=== PATIENT | male | born 1960 | race Caucasian/White ===

== ENCOUNTER 2018-01-10 07:04 | Inpatient (IN) | payer OTHER ==
--- NOTE | 2018-01-10 09:13 | C.PDOC ---
History Of Present Illness 57-year-old male, presents to the emergency department requesting detox from alcohol and cocaine. His last use was last night at 11pm. Patient states he has been increasingly depressed and has suicidal thoughts. Time Seen by Provider: 01/10/18 07:29 Chief Complaint (Nursing): Substance Abuse History Per: Patient History/Exam Limitations: no limitations Modifying Factor(s): Alcohol Recent travel outside of the [place]: No Past Medical History Reviewed: Historical Data, Nursing Documentation, Vital Signs Vital Signs: Last Vital Signs Temp 98.9 F 01/10/18 07:17 Pulse 80 01/10/18 07:17 Resp 20 01/10/18 07:17 BP 100/60 01/10/18 07:17 Pulse Ox 97 01/10/18 07:17 - Medical History PMH: Hypothyroidism Family History: States: No Known Family Hx - Social History Hx Alcohol Use: Yes Hx Substance Use: Yes - Immunization History Hx Tetanus Toxoid Vaccination: Yes Hx Influenza Vaccination: No Hx Pneumococcal Vaccination: No Review Of Systems Constitutional: Negative for: Fever, Weakness Eyes: Negative for: Pain ENT: Negative for: Ear Pain, Ear Discharge Cardiovascular: Negative for: Chest Pain Respiratory: Negative for: Shortness of Breath Gastrointestinal: Negative for: Nausea, Vomiting Genitourinary: Negative for: Dysuria, Frequency Musculoskeletal: Negative for: Neck Pain Skin: Negative for: Rash, Lesions Neurological: Negative for: Weakness, Numbness Physical Exam - Physical Exam Appears: Non-toxic, No Acute Distress Skin: Warm, Dry, No Rash Head: Atraumatic Eye(s): bilateral: Normal Inspection Nose: Normal Oral Mucosa: Moist Lips: Normal Appearing Neck: Normal ROM Cardiovascular: Rhythm Regular, No Murmur Respiratory: Normal Breath Sounds, No Accessory Muscle Use Back: Normal Inspection Extremity: Normal ROM, No Deformity Neurological/Psych: Oriented x3, Normal Speech ED Course And Treatment - Laboratory Results Result Diagrams: 01/10/18 10:23 01/10/18 10:23 O2 Sat by Pulse Oximetry: 97 Pulse Ox Interpretation: Normal (RA) Medical Decision Making Medical Decision Making: PAtient is medically cleared. Psych agrees to admit the patient to psych floor. Disposition - Disposition Disposition: HOSPITALIZED Disposition Time: 12:17 Condition: STABLE Forms: [employer] ([place]) - POA Present On Arrival: None - Clinical Impression Clinical Impression: Alcohol dependence, Depression - Scribe Statement The provider has reviewed the documentation as recorded by the Scribe (Sandra Lehman) All medical record entries made by the Scribe were at my direction and personally dictated by me. I have reviewed the chart and agree that the record accurately reflects my personal performance of the history, physical exam, medical decision making, and the department course for this patient. I have also personally directed, reviewed, and agree with the discharge instructions and disposition.
[2018-01-10 10:36] LABS: BASO # 0.1 K/uL (0.0-0.2); BASO % 0.9 % (0.0-2.0); EOS # 0.1 K/uL (0.0-0.7); EOS % 0.8 % (0.0-4.0); HEMOGLOBIN 13.2 g/dL (12.0-18.0); LYMPH # 1.5 K/uL (1.0-4.3); LYMPH % 20.9 % (20.0-40.0); MEAN CELL VOLUME 91.9 fL (80.0-94.0); MEAN CORPUSCULAR HEMOGLOBIN 31.1 pg (27.0-31.0); MEAN CORPUSCULAR HGB CONC 33.8 g/dL (33.0-37.0); MONO # 0.6 K/uL (0.0-0.8); NEUT # 4.9 K/uL (1.8-7.0); NEUT % 69.4 % (50.0-75.0); NRBC % 0.2 % (0.0-2.0); RBC 4.24 Mil/uL (4.40-5.90); RED CELL DISTRIBUTION WIDTH 14.1 % (11.5-14.5); WHITE BLOOD COUNT 7.1 K/uL (4.8-10.8)
[2018-01-10 10:43] LABS: SQUAMOUS EPITHIAL < 1 /hpf (0-5); URINE BILIRUBIN NEGATIVE (NEGATIVE); URINE BLOOD NEGATIVE (NEGATIVE); URINE CLARITY Clear (Clear); URINE COLOR Yellow (YELLOW); URINE GLUCOSE (UA) NORMAL (Normal); URINE LEUKOCYTE ESTERASE NEG Leu/uL (Negative); URINE PROTEIN NEGATIVE (NEGATIVE)
[2018-01-10 10:59] LABS: ALB/GLOB RATIO 1.5 (1.0-2.1); ALBUMIN 4.1 g/dL (3.5-5.0); ALT/SGPT 49 U/L (21-72); AST/SGOT 62 U/L (17-59); BLOOD UREA NITROGEN 17 mg/dL (9-20); CALCIUM 8.6 mg/dl (8.6-10.4); GFR NON-AFRICAN AMERICAN 57
[2018-01-10 11:24] LABS: BARBITURATES, UR NEGATIVE (NEGATIVE); BENZODIAZEPINES, UR NEGATIVE (NEGATIVE); OPIATES, UR NEGATIVE (NEGATIVE); PHENCYCLIDINE, UR NEGATIVE (NEGATIVE)
[2018-01-10 13:39] VITALS: O2SAT 100
--- NOTE | 2018-01-10 13:55 | PCM.PSYCH ---
Initial Psychiatric Evaluation - Initial Psychiatric Evaluation Type of Admission: Voluntary Legal Status: Capacity Chief Complaint (in patient's own words): "I'm depressed" History of Present Illness and Precipitating Events: Pt is a 57 yr old single male who lives alone and is working as a temp in [employer] who has no current support system. He presented to ED today requesting detox from alcohol and help for his suicidal ideation and depression. He states that he's been increasingly depressed and has had S/I. He states that since his girlfriend of breast cancer 2-3 months ago he's been using cocaine and alcohol. He drinks about 1/2 pint of vodka and 2 quarts of beer per day during this period. He additionally has intermittent use of alcohol for the last 25 years prior to this. He additionally smokes cocaine on and off which began as a young adult. He denied other recreational drug use but has a 29 pack year history of cigarette smoking. He reports a history of alcoholic hallucinations, and delirium tremens in the past but denies ever experiencing withdrawal seizures. He admits to depressed mood, poor appetite, insomnia, hopelessness. He denies anhedonia, current S/I, H/I, auditory/visual hallucinations. Psych: Patient he has been admitted once to a psychiatric hospital when he was 19 for problems at home. He admits he's been to detox here many years ago as well as drug rehab a few times. Prior to these past 2 months he was previously clean for 1yr. Patient has a psychiatric history of anxiety, drepression, insomnia. Medical hx: Hypothyroidism Allergy: Denies Surg: Denies Hosp: Denies Family hx: No psych illness in family, father: alcohol Current Medications: Active Medications Generic Name Dose Route Start Last Admin Trade Name Freq PRN Reason Stop Dose Admin Chlordiazepoxide 25 mg 01/10/18 14:00 Librium PO 01/15/18 13:59 Q6 PAMELA Taper Chlordiazepoxide 25 mg 01/10/18 12:31 Librium PO Q4H PRN Alcohol Withdrawal Clonidine HCl 0.1 mg 01/10/18 12:31 Catapres PO Q4H PRN Symptoms of alcohol withdrawl Escitalopram Oxalate 5 mg 01/10/18 13:15 Lexapro PO DAILY PAMELA Folic Acid 1 mg 01/10/18 12:45 Folic Acid PO DAILY PAMELA Gabapentin 100 mg 01/10/18 14:00 Neurontin PO TID PAMELA Hydroxyzine HCl 25 mg 01/10/18 12:33 Atarax PO Q4H PRN Anxiety Ibuprofen 600 mg 01/10/18 12:33 Motrin Tab PO Q6H PRN Pain, moderate (4-7) Levothyroxine Sodium 25 mcg 01/11/18 06:30 Synthroid PO DAILY@0630 [facility] Multivitamins 1 tab 01/10/18 12:45 Hexavitamin PO DAILY PAMELA Thiamine HCl 100 mg 01/10/18 12:45 Vitamin B1 Tab PO DAILY PAMELA Trazodone HCl 50 mg 01/10/18 12:31 Desyrel PO HS PRN Insomnia Past Psychiatric History - Past Psychiatric History Previous Treatment History: Inpatient Pertinent Medical Hx (Current Medical&Sleep Prob, Allergies): Allergies Allergy/AdvReac Type Severity Reaction Status Date / Time No Known Allergies Allergy Verified 01/10/18 07:17 No Known Home Med 01/10/18 Review of Systems - Neurological Neurological: Tremor - Psychiatric Psychiatric: Abnormal Sleep Pattern, Anhedonia, Anxiety, Depression, Difficulty Concentrating, Mood Swings. absent: Hallucinations, Homicidal Ideation, Paranoia, Suicidal Ideation Mental Status Examination - Personal Presentation Personal Presentation: Looks stated age - Affect Affect: Constricted - Motor Activity Motor Activity: Calm - Reliability in Providing Information Reliability in Providing Information: Good - Speech Speech: Organized - Mood Mood: Depressed, Anxious - Formal Thought Process Formal Thought Process: No Impairment - Cognitive Functions Orientation: Person, Place, Situation, Time Sensorium: Alert Attention/Concentration: Easily distracted Estimate of Intelligence: Average Judgement: Intact, as evidence by: Insight regarding need for hospitalization Memory: Recent intact, as evidence by: Ability to recall events of the day, Remote intact, as evidenced by: Abilit to recall sig. life events - Risk Risk: Withdrawal, Diminished functioning - Strength & Assets Inventory Strength & Assets Inventory: Cooperative - Limitations Limitations: Living alone DSM 5 DX - DSM 5 DSM 5 Diagnosis: Major depression, recurrent, severe, without psychosis Alcohol withdrawal Alcohol use d/o - severe Cocaine use d/o - severe - Recommended/Plan of Treatment Treatment Recommendations and Plan of Treatment: Lexapro for depression librium taper Gabapentin for cocaine and anxiety prn meds Attend groups and activities Supportive psychotherapy and CBT PR for abstinence refer to rehab or IOP 35 min Projected ELOS: 5-6 days Prognosis: good w treatment - Smoking Cessation Smoking Cessation Initiated: Yes
[2018-01-10] MEDS: Multiple Vitamins Tab PO SCH (16:15)
--- NOTE | 2018-01-10 16:36 | PCM.BM ---
<EstebanKumar - Last Filed: 01/10/18 16:34> Treatment Plan Problems - Problems identified on initial assessmt possible si Date Initiated: 01/10/18 Time Initiated: 16:35 Status: Active Treatment assets and liabiliti Patient Assests: cooperative, self-reliant, cognitively intact Patient Liabilities: substance abuse, medical problems - Milieu Protocol Maintain good personal hygiene: daily Encourage regular showers, daily Remind patient to perform daily oral care, daily Assist patient to perform ADL's Conduct patient checks and document Observation sheet: Q15 minutes Maintain personal safety: every shift Educate patient to report safety concerns to staff, every shift Monitor environment for contraband/sharps Medication safety: Monitor for expected outcome, potential side effects: every shift, Assess barriers to learning: every shift, Assess readiness for medication education: every shift <Warren Kramer - Last Filed: 01/11/18 11:22> - Diagnosis (1) Depression Status: Acute Interventions: 01/11/18 11:22 * Assess/adjust medications daily and /or as needed * See patient on an individual basis 7x/week to assess symptoms of depression * Monitor for side effects & effectiveness of medications * (2) Alcohol dependence Status: Acute Interventions: 01/11/18 11:22 * Assess 7x/week regarding severity of withdrawal * Educate regarding risks, benefits, side effects and alternatives of medications * Use Motivational Interviewing for abstinence * Use CBT for relapse prevention * Medication management for withdrawal symptoms * Encourage medication assisted treatment * <Solange Dinh - Last Filed: 01/11/18 12:38> Family Contact Family involvement: Patient does not wish Family/SO involvement Family contact: Patient declines to allow family contact at present - Goals for Treatment Patient goals for treatment: "I want to go to a rehab." Discharge/Continuing Care - Education Needs Education Needs: Patient Medication, Patient Diagnosis/Disease Process, Patient Coping Skills, Patient Placement options, Patient Community resources - Discharge Discharge Criteria: Free of Suicidal thoughts, Normal sleep pattern, Ability to care for self, No longer exhibiting s/s of withdrawal, Reduction of target symptoms Discharge to:: Substance Abuse Rehab - Treatment Team Participation Discussed with Family/SO: No Was Patient/Family/SO present at Treatment Team Meeting: Yes
[2018-01-11] MEDS: Levothyroxine 25 MCG TAB PO SCH (06:17)
[2018-01-11 08:18] LABS: FREE T4 1.11 ng/dL (0.78-2.19)
[2018-01-11] MEDS: Multiple Vitamins Tab PO SCH (10:18)
--- NOTE | 2018-01-11 10:18 | PCM.PYCHPN ---
Psychiatric Progress Note - Psychiatric Progress Note Patient seen today, length of contact: 15 min Patient Chief Complaint: I'm feeling little better Problems Identified/Issues Discussed: Patient seen and evaluated, chart reviewed and discussed with the nurse. Patient still reports reports depressed mood but reports some improvement in the feelings of hopelessness and helplessness. He denies any auditory or visual hallucinations or any paranoia. He remained isolated and withdrawn. He still reports poor sleep and reports withdrawal symptoms including nausea, anxiety, and headaches. He is taking the medications and denies any side effects. Symptoms are improving and she needs more time for stabilization Supportive therapy and psychoeducation were given. Medication Change: Yes Medical Record Reviewed: Yes Mental Status Examination - Cognitive Function Orientation: Person, Place, Situation, Time Memory: Intact Attention: WNL Concentration: Poor Association: WNL Fund of Knowledge: Poor - Mood Mood: Depressed, Anxious - Affect Affect: Constricted - Speech Speech: Soft - Formal Thought Process Formal Thought Process: No Impairment - Suicidal Ideation Suicidal Ideation: No - Homicidal Ideation Homicidal Ideation: No Goal/Treatment Plan - Goal/Treatment Plan Need for Continued Stay: Severe depression anxiety, Severe functional impairment Progress Toward Problem(s) and Goals/Treatment Plan: Major depression, recurrent, severe, without psychosis Alcohol withdrawal Alcohol use d/o - severe Cocaine use d/o - severe Lexapro for depression librium taper Gabapentin for cocaine and anxiety prn meds Attend groups and activities Supportive psychotherapy and CBT DC for abstinence refer to rehab or IOP - Smoking Cessation Smoking Cessation Initiated: Yes
[2018-01-12] MEDS: Levothyroxine 25 MCG TAB PO SCH (06:41)
[2018-01-12] MEDS: Multiple Vitamins Tab PO SCH (10:27)
--- NOTE | 2018-01-12 13:07 | PCM.PYCHPN ---
Psychiatric Progress Note - Psychiatric Progress Note Patient seen today, length of contact: 15 min Patient Chief Complaint: I'm feeling little better Problems Identified/Issues Discussed: Patient seen and evaluated, chart reviewed and discussed with the nurse. Per staff patient remained calm and cooperative. Patient still reports reports depressed mood but reports some improvement in the feelings of hopelessness and helplessness. He denies any auditory or visual hallucinations or any paranoia. He remained isolated and withdrawn. He still reports poor sleep and reports withdrawal symptoms including nausea, anxiety, and headaches. He is taking the medications and denies any side effects. Symptoms are improving and she needs more time for stabilization Supportive therapy and psychoeducation were given. Medication Change: Yes Medical Record Reviewed: Yes Mental Status Examination - Cognitive Function Orientation: Person, Place, Situation, Time Memory: Intact Attention: WNL Concentration: Poor Association: WNL Fund of Knowledge: Poor - Mood Mood: Depressed, Anxious - Affect Affect: Constricted - Speech Speech: Soft - Formal Thought Process Formal Thought Process: No Impairment - Suicidal Ideation Suicidal Ideation: No - Homicidal Ideation Homicidal Ideation: No Goal/Treatment Plan - Goal/Treatment Plan Need for Continued Stay: Severe depression anxiety, Severe functional impairment Progress Toward Problem(s) and Goals/Treatment Plan: Major depression, recurrent, severe, without psychosis Alcohol withdrawal Alcohol use d/o - severe Cocaine use d/o - severe Lexapro for depression librium taper Gabapentin for cocaine and anxiety prn meds Attend groups and activities Supportive psychotherapy and CBT [place] for abstinence refer to rehab or IOP
[2018-01-13] MEDS: Levothyroxine 50 MCG TAB PO SCH (06:18)
[2018-01-13] MEDS: Multiple Vitamins Tab PO SCH (09:44)
[2018-01-13] MEDS ORDERED: Influenza Vaccine 60 MCG/0.5 ML SYR (3 yr & up) IM ONE ×2 (10:00→12:00)
[2018-01-13] MEDS ORDERED: Pneumococcal 23-Valent Vaccine IM ONE (16:11)
--- NOTE | 2018-01-13 17:42 | PCM.PYCHPN ---
Psychiatric Progress Note - Psychiatric Progress Note Patient seen today, length of contact: 16 min Patient Chief Complaint: "I'm depressed" Medication Change: Yes Medical Record Reviewed: Yes Mental Status Examination - Cognitive Function Orientation: Person, Place, Situation, Time Memory: Intact Attention: WNL Concentration: Poor Association: WNL Fund of Knowledge: Poor - Mood Mood: Depressed, Anxious - Affect Affect: Constricted - Speech Speech: Soft - Formal Thought Process Formal Thought Process: No Impairment - Suicidal Ideation Suicidal Ideation: No - Homicidal Ideation Homicidal Ideation: No Goal/Treatment Plan - Goal/Treatment Plan Need for Continued Stay: Severe depression anxiety, Severe functional impairment Progress Toward Problem(s) and Goals/Treatment Plan: Lexapro for depression librium taper Gabapentin for cocaine and anxiety prn meds Attend groups and activities Supportive psychotherapy and CBT OR for abstinence refer to rehab or IOP 35 min
[2018-01-14] MEDS: Levothyroxine 50 MCG TAB PO SCH (06:42)
[2018-01-14] MEDS: Multiple Vitamins Tab PO SCH (09:19)
--- NOTE | 2018-01-14 13:14 | PCM.PYCHPN ---
Psychiatric Progress Note - Psychiatric Progress Note Patient seen today, length of contact: 16 min Patient Chief Complaint: "I'm depressed" Medication Change: Yes Medical Record Reviewed: Yes Mental Status Examination - Cognitive Function Orientation: Person, Place, Situation, Time Memory: Intact Attention: WNL Concentration: Poor Association: WNL Fund of Knowledge: Poor - Mood Mood: Depressed, Anxious - Affect Affect: Constricted - Speech Speech: Soft - Formal Thought Process Formal Thought Process: No Impairment - Suicidal Ideation Suicidal Ideation: No - Homicidal Ideation Homicidal Ideation: No Goal/Treatment Plan - Goal/Treatment Plan Need for Continued Stay: Severe depression anxiety, Severe functional impairment Progress Toward Problem(s) and Goals/Treatment Plan: Lexapro for depression librium taper Gabapentin for cocaine and anxiety prn meds Attend groups and activities Supportive psychotherapy and CBT [place] for abstinence refer to rehab or IOP 35 min
[2018-01-15] MEDS: Levothyroxine 50 MCG TAB PO SCH (06:30)
[2018-01-15] MEDS: Multiple Vitamins Tab PO SCH (09:16)
--- NOTE | 2018-01-15 23:44 | PCM.PYCHPN ---
Psychiatric Progress Note - Psychiatric Progress Note Patient seen today, length of contact: 15 minutes Patient Chief Complaint: I'm feeling better. Problems Identified/Issues Discussed: Patient seen, chart reviewed, case discussed with the staff. Issues related to illness and treatment were discussed with the patient and staff. Reported compliant with treatment with no adverse effects. Tolerating treatment very well. Reported feeling better. Awake, alert and oriented x3. Calm and cooperative with good eye contact. Mood reported as okay. Affect appropriate. Treatment discussed with the patient. Needs more time for stabilization. Aftercare discussed with the patient. Denied any delusions, auditory or visual hallucinations, suicidal ideations or homicidal ideations at the time of evaluation. Medical Problems: Hypothyroidism Diagnostic Results: Reviewed DSM 5 Symptoms Update: Some improvement with treatment Medication Change: No Medical Record Reviewed: Yes Mental Status Examination - Cognitive Function Orientation: Person, Place, Situation, Time Memory: Intact Attention: WNL Concentration: WNL Association: [facility] Fund of Knowledge: [facility] Decription of patient's judgement and insights: Fair - Mood Mood: Depressed (Much less than before) - Affect Affect: Other (Appropriate) - Speech Speech: Soft - Formal Thought Process Formal Thought Process: No Impairment Psychotic Thoughts and Behaviors: None - Suicidal Ideation Suicidal Ideation: No - Homicidal Ideation Homicidal Ideation: No Goal/Treatment Plan - Goal/Treatment Plan Need for Continued Stay: Remain at risks for inpatient hospitalization, Discharge may exacerbated symptoms, Severe functional impairment Progress Toward Problem(s) and Goals/Treatment Plan: Improving with treatment. Patient education. Supportive therapy. CBT for relapse prevention. SC for abstinence. Patient wants to go to [facility] in [place] for follow-up care after discharge from the hospital. Continue treatment as before. Estimated Date of D/C: 01/16/18 - Smoking Cessation Smoking Cessation Initiated: No
[2018-01-16] MEDS: Levothyroxine 50 MCG TAB PO SCH (06:34)
[2018-01-16 08:14] VITALS: BP 105/69; PULSE 78; RESP 20; TEMP 97.3
[2018-01-16] MEDS: Multiple Vitamins Tab PO SCH (09:05)
--- NOTE | 2018-01-16 21:26 | PCM.PYCHDC ---
Mental Status Examination - Mental Status Examination Orientation: Person, Place, Situation, Time Memory: Intact Mood: Neutral Affect: Other (Appropriate) Speech: Appropriate Attention: WNL Concentration: WNL Association: WNL Fund of Knowledge: WNL Formal Thought Process: No Impairment Description of patient's judgement and insight: Fair Psychotic Thoughts and Behaviors: None Suicidal Ideation: No Current Homicidal Ideation?: No Discharge Summary - Discharge Note Reason for Hospitalization: Major depressive disorder Alcohol use disorder Cocaine use disorder Laboratory Data: Reviewed Consultations:: List each consultation separately and include: 1. Reason for request. 2. Findings. 3. Follow-up Summary of Hospital Course include:: 1. Description of specific treatment plan utilized for patients during their course of treatmen. 2. Summarize the time- course for resolution of acute symptoms and/or regressed behaviors. 3. Describe issues identified and worked on during hospitalization. 4. Describe medication utilized. 5. Describe medical problems identified and treated. 6. 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 He presented to ED today requesting detox from alcohol and help for his suicidal ideation and depression. He states that he's been increasingly depressed and has had S/I. He states that since his girlfriend of breast cancer 2-3 months ago he's been using cocaine and alcohol. He drinks about 1/2 pint of vodka and 2 quarts of beer per day during this period. He additionally has intermittent use of alcohol for the last 25 years prior to this. He additionally smokes cocaine on and off which began as a young adult. He denied other recreational drug use but has a 29 pack year history of cigarette smoking. He reports a history of alcoholic hallucinations, and delirium tremens in the past but denies ever experiencing withdrawal seizures. He admits to depressed mood, poor appetite, insomnia, hopelessness. He denies anhedonia, current S/I, H/I, auditory/visual hallucinations. Psych: Patient he has been admitted once to a psychiatric hospital when he was 19 for problems at home. He admits he's been to detox here many years ago as well as drug rehab a few times. Prior to these past 2 months he was previously clean for 1yr. Patient has a psychiatric history of anxiety, drepression, insomnia. Medical hx: Hypothyroidism Allergy: Denies Surg: Denies Hosp: Denies Family hx: No psych illness in family, father: alcohol During his stay in the hospital, patient was treated with Librium taper, Lexapro, gabapentin and other when necessary medications. With above treatment and other activities on the unit, patient started feeling better. Today patient was stable, had no withdrawal symptoms and ready for discharge from the hospital. At the time of evaluation and discharge, patient was awake alert oriented 3, had no delusions, no auditory or visual hallucinations, no suicidal ideations or homicidal ideations. Patient was discharged in a stable condition. - Final Diagnosis (DSM 5) Condition upon Discharge: STABLE Disposition: HOME/ ROUTINE Follow-up Treatment Plan: Patient will go to [facility] [place] for follow-up care after discharge from the hospital. Prescriptions/Medication Reconciliation: Escitalopram [Lexapro] 10 mg PO DAILY #30 tab Gabapentin [Neurontin] 100 mg PO TID #90 cap traZODone [Desyrel] 100 mg PO HS PRN #30 tab PRN Reason: Insomnia - Smoking Cessation Smoking Cessation Medication prescribed: No - Antipsychotic Medications Pt discharged on 2 or more routine antipsychotic medications: No
== END 2018-01-16 10:36 | disposition home or self-care (01) | DRG 772 ==
LOC: C.ER 07:04 → C.5E 12:21
PROVIDERS: ADMIT Psychiatry & Neurology Psychiatry; ATTEND Psychiatry & Neurology Psychiatry
PROC: HZ2ZZZZ Detoxification Services for Substance Abuse Treatment (ICD-10-PCS; principal; 2018-01-10)
PROC: HZ42ZZZ Group Counseling for Substance Abuse Treatment, Cognitive-Behavioral (ICD-10-PCS; 2018-01-10)
PROC: HZ52ZZZ Individual Psychotherapy for Substance Abuse Treatment, Cognitive-Behavioral (ICD-10-PCS; 2018-01-10)
PROC: HZ59ZZZ Individual Psychotherapy for Substance Abuse Treatment, Supportive (ICD-10-PCS; 2018-01-10)
PROC: HZ56ZZZ Individual Psychotherapy for Substance Abuse Treatment, Psychoeducation (ICD-10-PCS; 2018-01-10)
PROC: HZ46ZZZ Group Counseling for Substance Abuse Treatment, Psychoeducation (ICD-10-PCS; 2018-01-10)
PROC: GZHZZZZ Group Psychotherapy (ICD-10-PCS; 2018-01-10)
PROC: GZ58ZZZ Individual Psychotherapy, Cognitive-Behavioral (ICD-10-PCS; 2018-01-10)
PROC: GZ56ZZZ Individual Psychotherapy, Supportive (ICD-10-PCS; 2018-01-10)
DX: F10.230 Alcohol dependence with withdrawal, uncomplicated (principal); R45.851 Suicidal ideations; F33.2 Major depressive disorder, recurrent severe without psychotic features; E03.9 Hypothyroidism, unspecified; Y90.0 Blood alcohol level of less than 20 mg/100 ml; F14.20 Cocaine dependence, uncomplicated; F41.9 Anxiety disorder, unspecified; G47.00 Insomnia, unspecified; F17.210 Nicotine dependence, cigarettes, uncomplicated

== ENCOUNTER 2018-01-30 17:36 | Emergency (ER) | payer OTHER ==
[2018-01-30 17:48] VITALS: BP 100/67; PULSE 88; RESP 18; TEMP 98.3; O2SAT 97
--- NOTE | 2018-01-30 18:08 | C.PDOC ---
History Of Present Illness 57 year old male presents to ED requesting detox from alcohol and cocaine. He states he relapsed and started using again 2 weeks ago. He denies any suicidal ideation or homicidal ideation. Time Seen by Provider: 01/30/18 18:01 Chief Complaint (Nursing): Substance Abuse History Per: Patient History/Exam Limitations: no limitations Past Medical History Reviewed: Historical Data, Nursing Documentation, Vital Signs Vital Signs: Last Vital Signs Temp 98.3 F 01/30/18 17:45 Pulse 88 01/30/18 17:45 Resp 18 01/30/18 17:45 BP 100/67 01/30/18 17:45 Pulse Ox 97 01/30/18 17:45 - Medical History PMH: Depression, Hypothyroidism - [facility] Procedures DETOXIFICATION SERVICES FOR SUBSTANCE ABUSE TREATMENT (01/10/18) GROUP DEVELOPMENT TECHNICAL LEAD FOR SUBSTANCE ABUSE TREATMENT, PSYCHOEDUCATION (01/10/18) GROUP DEVELOPMENT TECHNICAL LEAD FOR SUBSTANCE ABUSE, COGNITIVE BEHAVIORAL (01/10/18) GROUP PSYCHOTHERAPY (01/10/18) INDIV PSYCHOTHERAPY FOR SUBSTANCE ABUSE TREATMENT, SUPPORT (01/10/18) INDIV PSYCHOTHERAPY FOR SUBSTANCE ABUSE, COGNITIV BEHAVIORAL (01/10/18) INDIV PSYCHOTHERAPY FOR SUBSTANCE ABUSE, PSYCHOEDUCATION (01/10/18) INDIVIDUAL PSYCHOTHERAPY, COGNITIVE-BEHAVIORAL (01/10/18) INDIVIDUAL PSYCHOTHERAPY, SUPPORTIVE (01/10/18) Family History: States: Unknown Family Hx - Social History Hx Alcohol Use: Yes Hx Substance Use: Yes - Immunization History Hx Tetanus Toxoid Vaccination: Yes Hx Influenza Vaccination: No Hx Pneumococcal Vaccination: No Review Of Systems Constitutional: Positive for: Other (detox.) Psych: Negative for: Suicidal ideation, Other (homicidal ideations. ) Physical Exam - Physical Exam Appears: Non-toxic, No Acute Distress, Agitated Skin: Normal Color, Warm, Dry Head: Atraumatic, Normacephalic Eye(s): bilateral: Normal Inspection, EOMI Oral Mucosa: Moist Neck: Normal ROM, Supple Respiratory: Other (no acute respiratory distress. ) Extremity: Bilateral: Atraumatic, Normal ROM Neurological/Psych: Oriented x3, Normal Speech Gait: Steady ED Course And Treatment O2 Sat by Pulse Oximetry: 97 (RA) Pulse Ox Interpretation: Normal Medical Decision Making Medical Decision Making: Patient requesting detox. Prior records reviewed patient has history of drug abuse and was recently admitted for detox 01/15. Contact airplane woodworker who reports there are no beds available and additionally patient does not meet admission criteria at this time. I informed the patient of this and will provide list of other centers. Patient eloped without papers Disposition Counseled Patient/Family Regarding: Diagnosis, Need For Followup - Disposition Referrals: [facility] [Outside] Disposition: ELOPEMENT - ER ONLY Disposition Time: 18:00 Condition: STABLE Instructions: Drug Abuse and Drug Addiction (DC) - POA Present On Arrival: None - Clinical Impression Clinical Impression: Drug abuse - PA / ENGINEERING SCIENTIST / Resident Statement MD/DO has reviewed & agrees with the documentation as recorded. - Scribe Statement The provider has reviewed the documentation as recorded by the Scribe (Jessica Laureano) All medical record entries made by the Scribe were at my direction and personally dictated by me. I have reviewed the chart and agree that the record accurately reflects my personal performance of the history, physical exam, medical decision making, and the department course for this patient. I have also personally directed, reviewed, and agree with the discharge instructions and disposition.
== END 2018-01-30 18:01 | disposition left against medical advice (07) ==
LOC: C.ER 17:36
DX: F14.10 Cocaine abuse, uncomplicated (principal)

== ENCOUNTER 2018-02-27 16:24 | Inpatient (IN) | payer MEDICAID ==
[2018-02-27 16:51] LABS: BASO # 0.1 K/uL (0.0-0.2); BASO % 0.9 % (0.0-2.0); EOS # 0.1 K/uL (0.0-0.7); EOS % 0.8 % (0.0-4.0); HEMOGLOBIN 12.5 g/dL (12.0-18.0); LYMPH # 1.5 K/uL (1.0-4.3); LYMPH % 17.2 % (20.0-40.0); MEAN CORPUSCULAR HEMOGLOBIN 31.9 pg (27.0-31.0); MEAN CORPUSCULAR HGB CONC 33.9 g/dL (33.0-37.0); MEAN PLATELET VOLUME 7.9 fL (7.2-11.7); MONO # 0.6 K/uL (0.0-0.8); MONO % 6.6 % (0.0-10.0); NEUT # 6.5 K/uL (1.8-7.0); NEUT % 74.5 % (50.0-75.0); RBC 3.92 Mil/uL (4.40-5.90); WHITE BLOOD COUNT 8.7 K/uL (4.8-10.8)
[2018-02-27 16:58] LABS: MEAN CELL VOLUME 93.9 fL (80.0-94.0)
[2018-02-27 16:59] LABS: URINE BILIRUBIN NEGATIVE (NEGATIVE); URINE BLOOD NEGATIVE (NEGATIVE); URINE CLARITY Clear (Clear); URINE COLOR Yellow (YELLOW); URINE GLUCOSE (UA) NORMAL (Normal); URINE LEUKOCYTE ESTERASE NEG Leu/uL (Negative); URINE PROTEIN NEGATIVE (NEGATIVE); URINE UROBILINOGEN NORMAL mg/dL (0.2-1.0)
[2018-02-27 17:10] LABS: ALB/GLOB RATIO 1.7 (1.0-2.1); ALBUMIN 4.2 g/dL (3.5-5.0); ALT/SGPT 50 U/L (21-72); AST/SGOT 84 U/L (17-59); BLOOD UREA NITROGEN 26 mg/dL (9-20); CALCIUM 8.3 mg/dl (8.6-10.4); GFR NON-AFRICAN AMERICAN 57
[2018-02-27 17:11] LABS: BARBITURATES, UR NEGATIVE (NEGATIVE); BENZODIAZEPINES, UR NEGATIVE (NEGATIVE); OPIATES, UR NEGATIVE (NEGATIVE); PHENCYCLIDINE, UR NEGATIVE (NEGATIVE)
--- NOTE | 2018-02-27 17:37 | C.PDOC ---
History Of Present Illness 58 year old male presents to the ED for psychiatric evaluation. Patient reports depression, alcohol abuse, and expresses suicidal ideation. Patient also reports positive cocaine use. He denies homicidal ideation at this time. Time Seen by Provider: 02/27/18 16:35 Chief Complaint (Nursing): Psychiatric Evaluation History Per: Patient History/Exam Limitations: no limitations Onset/Duration Of Symptoms: Hrs Current Symptoms Are (Timing): Still Present Suicide/Self Injury Attempted (Context): None Modifying Factor(s): Alcohol, Cocaine Associated Symptoms: Depression, Suicidal Thoughts Involuntary Hold By: None Recent travel outside of the [place]: No Additional History Per: Patient Past Medical History Reviewed: Historical Data, Nursing Documentation, Vital Signs Vital Signs: Last Vital Signs Temp 98.6 F 02/27/18 16:26 Pulse 100 H 02/27/18 16:26 Resp 20 02/27/18 16:26 BP 103/63 02/27/18 16:26 Pulse Ox 98 02/27/18 16:26 - Medical History PMH: Depression, Hypothyroidism Denies: Diabetes, Hepatitis, HIV, HTN, Seizures, Sexually Transmitted Disease Surgical History: No Surg Hx - [facility] Procedures DETOXIFICATION SERVICES FOR SUBSTANCE ABUSE TREATMENT (01/10/18) GROUP REAL ESTATE CLOSER FOR SUBSTANCE ABUSE TREATMENT, PSYCHOEDUCATION (01/10/18) GROUP REAL ESTATE CLOSER FOR SUBSTANCE ABUSE, COGNITIVE BEHAVIORAL (01/10/18) GROUP PSYCHOTHERAPY (01/10/18) INDIV PSYCHOTHERAPY FOR SUBSTANCE ABUSE TREATMENT, SUPPORT (01/10/18) INDIV PSYCHOTHERAPY FOR SUBSTANCE ABUSE, COGNITIV BEHAVIORAL (01/10/18) INDIV PSYCHOTHERAPY FOR SUBSTANCE ABUSE, PSYCHOEDUCATION (01/10/18) INDIVIDUAL PSYCHOTHERAPY, COGNITIVE-BEHAVIORAL (01/10/18) INDIVIDUAL PSYCHOTHERAPY, SUPPORTIVE (01/10/18) Family History: States: Unknown Family Hx - Social History Hx Alcohol Use: Yes Hx Substance Use: Yes - Immunization History Hx Tetanus Toxoid Vaccination: Yes Hx Influenza Vaccination: No Hx Pneumococcal Vaccination: No Review Of Systems Psych: Positive for: Depression, Suicidal ideation. Negative for: Other (homicidal ideation ) Physical Exam - Physical Exam Appears: Non-toxic, No Acute Distress Skin: Normal Color, Warm, Dry Head: Atraumatic, Normacephalic Eye(s): bilateral: Normal Inspection Oral Mucosa: Moist Neck: Supple Chest: Symmetrical, No Deformity Cardiovascular: Rhythm Regular Respiratory: Normal Breath Sounds, No Accessory Muscle Use Extremity: Normal ROM Neurological/Psych: Oriented x3, Normal Speech, Normal Cognition ED Course And Treatment - Laboratory Results Result Diagrams: 02/27/18 16:47 02/27/18 16:47 O2 Sat by Pulse Oximetry: 98 (on RA ) Pulse Ox Interpretation: Normal Medical Decision Making Medical Decision Making: Assessment: psychiatric evaluation Plan: * bloodwork * urinalysis * 1:1 ED observation * crisis evaluation * reassess and disposition Progress: Bloodwork and urinalysis ordered and reviewed. Patient placed on 1:1 ED observation. Patient evaluated by licensed clinical social worker, admitted to Dr. Valencia's service. Disposition Discussed With : Gage Valencia Doctor Will See Patient In The: Hospital Counseled Patient/Family Regarding: Studies Performed, Diagnosis - Disposition Disposition: HOSPITALIZED Disposition Time: 17:37 Condition: FAIR - Clinical Impression Clinical Impression: Depression, Alcohol abuse - Scribe Statement The provider has reviewed the documentation as recorded by the Scribe (Lesly Oliveros) Provider Attestation: All medical record entries made by the Scribe were at my direction and personally dictated by me. I have reviewed the chart and agree that the record accurately reflects my personal performance of the history, physical exam, medical decision making, and the department course for this patient. I have also personally directed, reviewed, and agree with the discharge instructions and disposition.
--- NOTE | 2018-02-27 21:13 | PCM.BM ---
<Dionisio Huff - Last Filed: 02/27/18 21:11> Treatment Plan Problems - Problems identified on initial assessmt Altered Health Maintenance Date Initiated: 02/27/18 Time Initiated: 18:05 Assessment reference: NA Status: Active Ineffective Coping Date Initiated: 02/27/18 Time Initiated: 18:05 Assessment reference: NA Status: Active Treatment assets and liabiliti Patient Assests: cooperative, self-reliant, ADL independent, physically healthy, negotiates basic needs, cognitively intact Patient Liabilities: live alone, substance abuse - Milieu Protocol Maintain good personal hygiene: daily Encourage regular showers, daily Remind patient to perform daily oral care, daily Assist patient to perform ADL's Conduct patient checks and document Observation sheet: Q15 minutes Maintain personal safety: every shift Educate patient to report safety concerns to staff, every shift Monitor environment for contraband/sharps Medication safety: Monitor for expected outcome, potential side effects: every shift, Assess barriers to learning: every shift, Assess readiness for medication education: every shift <Gage Valencia - Last Filed: 02/28/18 20:22> - Diagnosis (1) Major depressive disorder, recurrent severe without psychotic features Status: Acute Interventions: 02/28/18 20:22 * Assess/adjust medications daily and /or as needed * See patient on an individual basis 7x/week to assess level of manic behaviors and stability * Discuss risks, benefits, side effects and alternatives of medications (2) Alcohol use disorder, severe, dependence Status: Acute Interventions: 02/28/18 20:21 * Assess 7x/week regarding severity of withdrawal * Educate regarding risks, benefits, side effects and alternatives of medications * Use Motivational Interviewing for abstinence * Use CBT for relapse prevention * Medication management for withdrawal symptoms * Encourage medication assisted treatment (3) Cocaine use disorder, severe, dependence Status: Acute Interventions: 02/28/18 20:21 * Assess 7x/week regarding severity of withdrawal * Educate regarding risks, benefits, side effects and alternatives of medications * Use Motivational Interviewing for abstinence * Use CBT for relapse prevention * Medication management for withdrawal symptoms * Encourage medication assisted treatment <Nely Velez - Last Filed: 03/01/18 14:09> Family Contact Family involvement: Famliy/SO not involved - Goals for Treatment Patient goals for treatment: "I want to go to rehab." Discharge/Continuing Care - Education Needs Education Needs: Patient Medication, Patient Coping Skills, Patient Placement options, Patient Community resources - Discharge Discharge Criteria: Tolerates medication w/o severe side effects, No longer exhibiting s/s of withdrawal Discharge to:: Substance Abuse Rehab - Treatment Team Participation Discussed with Family/SO: No Was Patient/Family/SO present at Treatment Team Meeting: Yes
[2018-02-28] MEDS: Levothyroxine 50 MCG TAB PO SCH (05:58)
--- NOTE | 2018-02-28 20:30 | PCM.PSYCH ---
Initial Psychiatric Evaluation - Initial Psychiatric Evaluation Type of Admission: Voluntary Legal Status: Capacity Chief Complaint (in patient's own words): I need help for my depression and substance use. History of Present Illness and Precipitating Events: Patient is a 58 years old, single, unemployed, -[place] male who was admitted due to worsening of depression and withdrawing from alcohol and cocaine. Patient reported that he is depressed for last many years, was not on any treatment. Yesterday started feeling suicidal without any plan and came to [facility] for help. Patient reported difficulty sleeping no change in appetite, has suicidal ideations at times without plan. Denied any suicidal attempt. Denied any homicidal ideations. Reported crying a lot, feels hopelessness and helplessness and guilty about things he has done in the past. Patient reported that sometimes he feels that someone is after him especially during intoxication. Denied any psychotic manic or anxiety symptoms. Patient has history of 2 previous psychiatric admissions. Alcohol: This is his drug of choice. He started drinking alcohol at 18 years of age. Reported drinking a lot. Last drink was yesterday. His longest period of abstinence was one year from November 2016 to November 2017. He relapsed in November 2017. He has history of 3-4 detox and wanted rehab in [address] [facility]. Cocaine: He started using cocaine at 25 years of age, using daily. Last used 2 days ago. Denied use of cannabis and heroin. Smokes half pack of cigarettes daily and is requesting for nicotine patch. Patient was incarcerated for about 6 months secondary to theft and burglary. He was on probation, finished recently. Patient was born in [place], has GED, was working until November 2017. Currently unemployed. He lives alone. Never and has no children. His height is 5 feet 8 inches and he is 160 pounds. Current Medications: Active Medications Generic Name Dose Route Start Last Admin Trade Name Freq PRN Reason Stop Dose Admin Chlordiazepoxide 25 mg 03/01/18 00:00 Librium PO 03/04/18 23:59 Q6 PAMELA Taper Chlordiazepoxide 25 mg 02/28/18 20:13 Librium PO Q4H PRN Alcohol Withdrawal Clonidine HCl 0.1 mg 02/28/18 20:13 Catapres PO Q4H PRN Symptoms of alcohol withdrawl Folic Acid 1 mg 03/01/18 10:00 Folic Acid PO DAILY PAMELA Gabapentin 400 mg 03/01/18 10:00 Neurontin PO TID [facility] Ibuprofen 600 mg 02/28/18 20:16 Motrin Tab PO Q6 PRN Pain, moderate (4-7) Levothyroxine Sodium 50 mcg 02/28/18 06:30 02/28/18 05:58 Synthroid PO 50 mcg DAILY@0630 PAMELA Administration Multivitamins 1 tab 03/01/18 10:00 Hexavitamin PO DAILY [facility] Nicotine 1 patch 03/01/18 10:00 Nicoderm Cq TD DAILY [facility] Pneumococcal Polyvalent Vaccine 0.5 ml 03/01/18 10:00 Pneumovax 23 Vaccine IM 03/01/18 10:01 .ONCE ONE Sertraline HCl 50 mg 03/01/18 10:00 Zoloft PO DAILY [facility] Thiamine HCl 100 mg 03/01/18 10:00 Vitamin B1 Tab PO DAILY [facility] Trazodone HCl 100 mg 02/27/18 22:00 02/27/18 22:06 Desyrel PO 100 mg HS PAMELA Administration Past Psychiatric History - Past Psychiatric History Previous Treatment History: Inpatient History of Abuse: None reported History of ETOH/Drug Use: See HPI History of Family Illness: None reported Pertinent Medical Hx (Current Medical&Sleep Prob, Allergies): Allergies Allergy/AdvReac Type Severity Reaction Status Date / Time No Known Allergies Allergy Verified 02/27/18 16:28 RX: traZODone [Desyrel] 100 mg PO HS PRN #30 tab 01/16/18 Hypothyroidism Review of Systems - Psychiatric Psychiatric: As Per HPI, Anhedonia, Depression, Suicidal Ideation Mental Status Examination - Personal Presentation Personal Presentation: Looks stated age - Affect Affect: Depressed - Motor Activity Motor Activity: Calm - Reliability in Providing Information Reliability in Providing Information: Fair - Speech Speech: Organized - Mood Mood: Depressed - Formal Thought Process Formal Thought Process: No Impairment - Hallucinations/Delusions Hallucinations: Other (None reported) Delusions: Other - Obsessions/Compulsions Obsessions: None Compulsions: None - Cognitive Functions Orientation: Person, Place, Situation, Time Sensorium: Alert Attention/Concentration: Attentive Abstract Thinking: [place] Estimate of Intelligence: Average Judgement: Intact, as evidence by: Insight regarding need for hospitalization Memory: Recent intact, as evidence by: Ability to recall events of the day, Remote intact, as evidenced by: Ability to recall historical events - Risk Risk: Withdrawal, Diminished functioning - Strength & Assets Inventory Strength & Assets Inventory: Cooperative - Limitations Limitations: Living alone DSM 5 DX - DSM 5 DSM 5 Diagnosis: Major depressive disorder recurrent severe without psychotic features. Alcohol use disorder severe. Cocaine use disorder severe - Recommended/Plan of Treatment Treatment Recommendations and Plan of Treatment: Patient education. Supportive therapy. CBT for relapse prevention. MA for abstinence. We will start with Librium taper for alcohol withdrawal symptoms. Other as needed medication. Sertraline for depression. Nicotine patch for smoking. Projected ELOS: 8-10 days - Smoking Cessation Smoking Cessation Initiated: Yes
[2018-03-01] MEDS: Levothyroxine 50 MCG TAB PO SCH (05:52)
[2018-03-01] MEDS ORDERED: Pneumococcal 23-Valent Vaccine IM ONE (10:00)
[2018-03-01] MEDS: Multiple Vitamins Tab PO SCH (10:15)
--- NOTE | 2018-03-01 16:30 | PCM.PYCHPN ---
Psychiatric Progress Note - Psychiatric Progress Note Patient seen today, length of contact: 15 minutes Patient Chief Complaint: I am feeling little better. Problems Identified/Issues Discussed: Patient seen, chart reviewed, case discussed with the staff. Issues related to illness and treatment were discussed with the patient and staff. Reported compliant with treatment with no adverse effect. Calm and cooperative. Reported feeling little better. Still having withdrawal symptoms including shaking, sweating, body aches and headache. Awake, alert and oriented x3. Mood reported as okay. Affect appropriate. Memory intact. Aftercare discussed with the patient. Denied any delusions, auditory or visual hallucinations, suicidal ideations or homicidal ideations at the time of evaluation. Medical Problems: Hypothyroidism Diagnostic Results: Reviewed DSM 5 Symptoms Update: Some improvement with treatment Medication Change: No Medical Record Reviewed: Yes Mental Status Examination - Cognitive Function Orientation: Person, Place, Situation, Time Memory: Intact Attention: WNL Concentration: WNL Association: [facility] Fund of Knowledge: [facility] Decription of patient's judgement and insights: Fair - Mood Mood: Anxious - Affect Affect: Other (Appropriate) - Speech Speech: Appropriate - Formal Thought Process Formal Thought Process: No Impairment Psychotic Thoughts and Behaviors: None - Suicidal Ideation Suicidal Ideation: No - Homicidal Ideation Homicidal Ideation: No Goal/Treatment Plan - Goal/Treatment Plan Need for Continued Stay: Remain at risks for inpatient hospitalization, Discharge may exacerbated symptoms, Severe functional impairment Progress Toward Problem(s) and Goals/Treatment Plan: Patient education. Supportive therapy. CBT for relapse prevention. [place] for abstinence. Continue treatment as before. Estimated Date of D/C: 03/08/18 - Smoking Cessation Smoking Cessation Initiated: Yes
[2018-03-02] MEDS: Levothyroxine 50 MCG TAB PO SCH (06:39)
[2018-03-02] MEDS: Multiple Vitamins Tab PO SCH (09:43)
--- NOTE | 2018-03-02 15:04 | PCM.PYCHPN ---
Psychiatric Progress Note - Psychiatric Progress Note Patient seen today, length of contact: 15 minutes Patient Chief Complaint: I am feeling better. Problems Identified/Issues Discussed: Patient seen, chart reviewed, case discussed with the staff. Issues related to illness and treatment were discussed with the patient and staff. Reported compliant with treatment with no adverse effect. Calm and cooperative. Reported feeling better. Awake, alert and oriented x3. Mood reported as okay. Affect appropriate. Memory intact. Aftercare discussed with the patient. Denied any delusions, auditory or visual hallucinations, suicidal ideations or homicidal ideations at the time of evaluation. Medical Problems: Hypothyroidism Diagnostic Results: Reviewed DSM 5 Symptoms Update: Some improvement with treatment. Medication Change: No Medical Record Reviewed: Yes Mental Status Examination - Cognitive Function Orientation: Person, Place, Situation, Time Memory: Intact Attention: WNL Concentration: WNL Association: WN Fund of Knowledge: [facility] Decription of patient's judgement and insights: Fair - Mood Mood: Anxious (Much less than before) - Affect Affect: Other (Appropriate) - Speech Speech: Appropriate - Formal Thought Process Formal Thought Process: No Impairment Psychotic Thoughts and Behaviors: None - Suicidal Ideation Suicidal Ideation: No - Homicidal Ideation Homicidal Ideation: No Goal/Treatment Plan - Goal/Treatment Plan Need for Continued Stay: Remain at risks for inpatient hospitalization, Discharge may exacerbated symptoms, Severe functional impairment Progress Toward Problem(s) and Goals/Treatment Plan: Patient education. Supportive therapy. CBT for relapse prevention. [place] for abstinence. Continue treatment as before. Patient wants to go to [facility] for follow-up care after discharge from the hospital. Estimated Date of D/C: 03/06/18 - Smoking Cessation Smoking Cessation Initiated: Yes
[2018-03-03] MEDS: Levothyroxine 50 MCG TAB PO SCH (06:31)
[2018-03-03] MEDS: Multiple Vitamins Tab PO SCH (10:42)
--- NOTE | 2018-03-03 12:30 | PCM.PYCHPN ---
Psychiatric Progress Note - Psychiatric Progress Note Patient seen today, length of contact: 15 minutes Patient Chief Complaint: I am feeling much better. Problems Identified/Issues Discussed: Patient seen, chart reviewed, case discussed with the staff. Issues related to illness and treatment were discussed with the patient and staff. Reported compliant with treatment with no adverse effect. Calm and cooperative. Reported feeling much better. Awake, alert and oriented x 3. Mood reported as okay. Affect appropriate. Memory intact. Aftercare discussed with the patient. Denied any delusions, auditory or visual hallucinations, suicidal ideations or homicidal ideations at the time of evaluation. Medical Problems: Hypothyroidism Diagnostic Results: Reviewed DSM 5 Symptoms Update: Improving with treatment. Medication Change: No Medical Record Reviewed: Yes Mental Status Examination - Cognitive Function Orientation: Person, Place, Situation, Time Memory: Intact Attention: WNL Concentration: WNL Association: WN Fund of Knowledge: [facility] Decription of patient's judgement and insights: Fair - Mood Mood: Anxious (Much less than before) - Affect Affect: Other (Appropriate) - Speech Speech: Appropriate - Formal Thought Process Formal Thought Process: No Impairment Psychotic Thoughts and Behaviors: None - Suicidal Ideation Suicidal Ideation: No - Homicidal Ideation Homicidal Ideation: No Goal/Treatment Plan - Goal/Treatment Plan Need for Continued Stay: Remain at risks for inpatient hospitalization, Discharge may exacerbated symptoms, Severe functional impairment Progress Toward Problem(s) and Goals/Treatment Plan: Patient education. Supportive therapy. CBT for relapse prevention. [place] for abstinence. Continue treatment as before. Patient wants to go to [facility] for follow-up care after discharge from the hospital. Estimated Date of D/C: 03/06/18 - Smoking Cessation Smoking Cessation Initiated: Yes
[2018-03-04] MEDS: Levothyroxine 50 MCG TAB PO SCH (06:30)
[2018-03-04] MEDS: Multiple Vitamins Tab PO SCH (10:11)
--- NOTE | 2018-03-04 22:39 | PCM.PYCHPN ---
Psychiatric Progress Note - Psychiatric Progress Note Patient seen today, length of contact: 15 minutes Patient Chief Complaint: I am feeling much better. Problems Identified/Issues Discussed: Patient seen, chart reviewed, case discussed with the staff. Issues related to illness and treatment were discussed with the patient and staff. Reported compliant with treatment with no adverse effect. Calm and cooperative. Reported feeling much better. Most of the time patient is isolated from in his room. Encouraged patient to attend groups and other activities on the unit. Awake, alert and oriented x 3. Mood reported as okay. Affect appropriate. Memory intact. Aftercare discussed with the patient. Patient will go to [facility] for follow-up care after discharge from the hospital. Denied any delusions, auditory or visual hallucinations, suicidal ideations or homicidal ideations at the time of evaluation. Medical Problems: Hypothyroidism Diagnostic Results: Reviewed DSM 5 Symptoms Update: Improving with treatment Medication Change: No Medical Record Reviewed: Yes Mental Status Examination - Cognitive Function Orientation: Person, Place, Situation, Time Memory: Intact Attention: WNL Concentration: WNL Association: WN Fund of Knowledge: [facility] Decription of patient's judgement and insights: Fair - Mood Mood: Anxious (Much less than before) - Affect Affect: Other (Appropriate) - Speech Speech: Appropriate - Formal Thought Process Formal Thought Process: No Impairment Psychotic Thoughts and Behaviors: None - Suicidal Ideation Suicidal Ideation: No - Homicidal Ideation Homicidal Ideation: No Goal/Treatment Plan - Goal/Treatment Plan Need for Continued Stay: Remain at risks for inpatient hospitalization, Discharge may exacerbated symptoms, Severe functional impairment Progress Toward Problem(s) and Goals/Treatment Plan: Patient education. Supportive therapy. CBT for relapse prevention. [place] for abstinence. Continue treatment as before. Patient wants to go to [facility] for follow-up care after discharge from the hospital. Estimated Date of D/C: 03/06/18 - Smoking Cessation Smoking Cessation Initiated: Yes
[2018-03-05] MEDS: Levothyroxine 50 MCG TAB PO SCH (06:27)
[2018-03-05] MEDS: Multiple Vitamins Tab PO SCH (10:57)
[2018-03-06] MEDS: Levothyroxine 50 MCG TAB PO SCH (06:20)
[2018-03-06 06:47] VITALS: BP 149/81; PULSE 66; RESP 20; TEMP 97.6; O2SAT 100
[2018-03-06] MEDS: Multiple Vitamins Tab PO SCH (09:07)
--- NOTE | 2018-03-06 10:03 | PCM.PYCHDC ---
Mental Status Examination - Mental Status Examination Orientation: Person, Place, Situation, Time Memory: Intact Mood: Neutral Affect: Constricted Speech: Soft Attention: WNL Concentration: WNL Association: WNL Fund of Knowledge: WNL Formal Thought Process: No Impairment Description of patient's judgement and insight: good, fair Psychotic Thoughts and Behaviors: denies any AVH Suicidal Ideation: No Current Homicidal Ideation?: No Discharge Summary - Discharge Note Reason for Hospitalization: Patient is a 58 years old, single, unemployed, -[place] male who was admitted due to worsening of depression and withdrawing from alcohol and cocaine. Patient reported that he is depressed for last many years, was not on any treatment. Yesterday started feeling suicidal without any plan and came to [facility] for help. Patient reported difficulty sleeping no change in appetite, has suicidal ideations at times without plan. Denied any suicidal attempt. Denied any homicidal ideations. Reported crying a lot, feels hopelessness and helplessness and guilty about things he has done in the past. Patient reported that sometimes he feels that someone is after him especially during intoxication. Denied any psychotic manic or anxiety symptoms. Patient has history of 2 previous psychiatric admissions. Alcohol: This is his drug of choice. He started drinking alcohol at 18 years of age. Reported drinking a lot. Last drink was yesterday. His longest period of abstinence was one year from November 2016 to November 2017. He relapsed in November 2017. He has history of 3-4 detox and wanted rehab in 2013 at [facility]. Cocaine: He started using cocaine at 25 years of age, using daily. Last used 2 days ago. Denied use of cannabis and heroin. Smokes half pack of cigarettes daily and is requesting for nicotine patch. Patient was incarcerated for about 6 months secondary to theft and burglary. He was on probation, finished recently. Patient was born in [place], has GED, was working until November 2017. Currently unemployed. He lives alone. Never and has no children. His height is 5 feet 8 inches and he is 160 pounds. Consultations:: List each consultation separately and include: 1. Reason for request. 2. Findings. 3. Follow-up Summary of Hospital Course include:: 1. Description of specific treatment plan utilized for patients during their course of treatmen. 2. Summarize the time- course for resolution of acute symptoms and/or regressed behaviors. 3. Describe issues identified and worked on during hospitalization. 4. Describe medication utilized. 5. Describe medical problems identified and treated. 6. 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 Alcohol use disorder severe. Cocaine use disorder severe Disposition: HOME/ ROUTINE Prescriptions/Medication Reconciliation: Gabapentin [Neurontin] 400 mg PO TID #60 cap Levothyroxine [Synthroid] 50 mcg PO DAILY@0630 #30 tab traZODone [Desyrel] 100 mg PO HS PRN #30 tab PRN Reason: Insomnia - Smoking Cessation Smoking Cessation Medication prescribed: No - Antipsychotic Medications Pt discharged on 2 or more routine antipsychotic medications: No
== END 2018-03-06 11:58 | disposition home or self-care (01) | DRG 751 ==
LOC: C.ER 16:24 → C.9E 17:36 → C.5E 17:46
PROC: GZ3ZZZZ Medication Management (ICD-10-PCS; principal; 2018-02-27)
PROC: HZ89ZZZ Medication Management for Substance Abuse Treatment, Other Replacement Medication (ICD-10-PCS; 2018-02-27)
PROC: HZ80ZZZ Medication Management for Substance Abuse Treatment, Nicotine Replacement (ICD-10-PCS; 2018-02-27)
PROC: GZHZZZZ Group Psychotherapy (ICD-10-PCS; 2018-02-27)
PROC: GZ56ZZZ Individual Psychotherapy, Supportive (ICD-10-PCS; 2018-02-27)
DX: F33.2 Major depressive disorder, recurrent severe without psychotic features (principal); R45.851 Suicidal ideations; F10.20 Alcohol dependence, uncomplicated; F14.20 Cocaine dependence, uncomplicated; F17.210 Nicotine dependence, cigarettes, uncomplicated; E03.9 Hypothyroidism, unspecified; Y90.3 Blood alcohol level of 60-79 mg/100 ml